=== PATIENT | male | born 1960 | race Caucasian/White ===

== ENCOUNTER 2020-06-24 18:01 | Emergency (ER) | payer MEDICAID ==
[~2020-06-24] VITALS: Ht 167.6 cm; Wt 60.0 kg
[~2020-06-24 18:01] MED LIST: AZIT-63 PO; CEPH500C5 PO; GABA-530 PO; PERM60CR19 TOP
[2020-06-24 18:04] VITALS: BP 110/65
[2020-06-24] MEDS ORDERED: hydrOXYzine 25 MG tablet PO ONE (19:30)
[2020-06-24] MEDS ORDERED: HYDR-3686 PO (19:33)
== END 2020-06-24 19:49 | disposition home or self-care (01) ==
LOC: ER 18:04
DX: S60.511A Abrasion of right hand, initial encounter (principal); S60.512A Abrasion of left hand, initial encounter; B82.9 Intestinal parasitism, unspecified; R05 Cough; B85.2 Pediculosis, unspecified; J43.9 Emphysema, unspecified; F32.9 Major depressive disorder, single episode, unspecified; Z86.19 Personal history of other infectious and parasitic diseases; Z85.9 Personal history of malignant neoplasm, unspecified; Z72.89 Other problems related to lifestyle; Z59.0 Homelessness; Z79.2 Long term (current) use of antibiotics; Z79.899 Other long term (current) drug therapy; X58.XXXA Exposure to other specified factors, initial encounter; Y93.89 Activity, other specified; Y92.89 Other specified places as the place of occurrence of the external cause; Y99.8 Other external cause status
CPT/HCPCS: 99283

== ENCOUNTER 2020-06-28 21:13 | Emergency (ER) | payer MEDICAID ==
[~2020-06-28] VITALS: Ht 175.3 cm; Wt 70.4 kg
[~2020-06-28 21:13] MED LIST changes: +HYDR-3686 PO
[2020-06-28 21:18] VITALS: BP 115/63
== END 2020-06-28 21:40 | disposition home or self-care (01) ==
LOC: ER 21:14
DX: S80.862A Insect bite (nonvenomous), left lower leg, initial encounter (principal); S80.861A Insect bite (nonvenomous), right lower leg, initial encounter; W57.XXXA Bitten or stung by nonvenomous insect and other nonvenomous arthropods, initial encounter; Y93.89 Activity, other specified; Y92.89 Other specified places as the place of occurrence of the external cause; Y99.8 Other external cause status
CPT/HCPCS: 99281